=== PATIENT | female | born 1980 | race American Indian/Alaskan Native ===

== ENCOUNTER 2016-06-17 12:23 | Emergency (ER) | payer OTHER ==
[2016-06-17] MEDS ORDERED: ATIVAN ONE (12:36)
[2016-06-17] MEDS ORDERED: KEPPRA 1,000 MG/NS 0.75% 100ML 1,000 MG/100 ML BAG IV ONE ×2 (12:37→13:40)
--- NOTE | 2016-06-17 14:07 | Emergency Department Report ---
HPI - General Chief Complaint: Seizure Time Seen by Provider: 06/17/16 13:19 - HPI HPI: Chief complaint: Seizure HPI: Patient is a 35-year-old female who states she's had seizures for many years and has seen numerous neurologists. Patient states her EEG was normal. Patient lost her Medicaid and has not been able to see her doctor or fill her prescriptions. According to her boyfriend patient had 3-5 seizures today lasting various amounts of time. Patient does not have a post ictal phase and patient has shaking all over. There is no incontinence and no biting of her tongue. Patient has a history of migraine headaches and states she is having a migraine headache. Mode of arrival: EMS Source: Patient and patient's friend Began: This morning Duration: See above Context: See above Quality: Aching all over and migraine type headache Severity: 9 out of 10 Improved with: Nothing Worsened with: Not taking her medications Associated signs and symptoms: Patient denies fever, cough, cold, sore throat, nausea, vomiting, diarrhea, dysuria frequency or urgency. ED Past Medical Hx - Past Medical History Previous Medical History?: Yes Hx Seizures: Yes - Surgical History Past Surgical History?: No - Social History Smoking Status: Never Smoker Substance Use Type: None - Medications Home Medications: Home Medications Medication Instructions Recorded Confirmed Last Taken Type levETIRAcetam [Keppra TAB] 1,000 mg PO BID #60 tab 06/17/16 Unknown Rx levETIRAcetam [Keppra TAB] 1,500 mg PO BID 06/17/16 06/17/16 Unknown History ED Review of Systems ROS: Stated complaint: SEIZURE Other details as noted in HPI ROS Constitutional: No fever ENT: No uri symptoms Cardiovascular: No chest pain Respiratory: No sob or cough GI: No nausea vomiting or diarrhea : No dysuria frequency or urgency, Skin: No rash Neuro: No focal weakness or numbness Psych: No depression Sarabjit/lymph: No edema Physical Exam - Physical Exam Vital Signs: Vital Signs 06/17/16 12:45 Temperature 97.4 F L Pulse Rate 71 Respiratory 16 Rate Blood Pressure 112/60 O2 Sat by Pulse 99 Oximetry Physical Exam: GENERAL: The patient is well-developed well-nourished . HEENT: Normocephalic. Atraumatic. Extraocular motions are intact. Patient has moist mucous membranes. NECK: Supple. No meningitic signs are noted. There is no adenopathy noted. CHEST/LUNGS: Clear to auscultation. There is no respiratory distress noted. HEART/CARDIOVASCULAR: Regular. There is no tachycardia. There is no gallop rub or murmur. ABDOMEN: Abdomen is soft, nontender. Patient has normal bowel sounds. There is no abdominal distention. SKIN: There is no rash. There is no edema. There is no diaphoresis. NEURO: The patient is awake, alert, and oriented. The patient is cooperative. The patient has no focal neurologic deficits. The patient has normal speech. MUSCULOSKELETAL: There is no tenderness or deformity. There is no limitation range of motion. There is no evidence of acute injury. ED Course Vital Signs 06/17/16 12:45 Temperature 97.4 F L Pulse Rate 71 Respiratory 16 Rate Blood Pressure 112/60 O2 Sat by Pulse 99 Oximetry - Reevaluation(s) Reevaluation #1: 06/17/16 14:07 Patient given a gram of IV Keppra. ED Medical Decision Making - Lab Data Result diagrams: 06/17/16 14:02 06/17/16 14:02 Critical care attestation.: If time is entered above; I have spent that time in minutes in the direct care of this critically ill patient, excluding procedure time. ED Disposition Clinical Impression: Seizure Disposition: DISCHARGED TO HOME OR SELFCARE Is pt being admited?: No Does the pt Need Aspirin: No Condition: Stable Instructions: Non-epileptic Seizures (ED) Prescriptions: levETIRAcetam [Keppra TAB] 1,000 mg PO BID #60 tab Time of Disposition: 16:02
[2016-06-17 14:20] LABS: Urine Drugs of Abuse Note Disclamer
[2016-06-17 14:23] LABS: Basophils % (Auto) 1.1 % (0.0-1.8); Eosinophils % (Auto) 0.9 % (0.0-4.3); Hemoglobin 11.9 gm/dl (10.1-14.3); Mean Corpuscular HGB Conc 32 % (30-34); Mean Corpuscular Hemoglobin 30 pg (28-32); Mean Corpuscular Volume 92 fl (79-97); Platelet Count 201 K/mm3 (140-440); Red Blood Count 4.03 M/mm3 (3.65-5.03); Red Cell Distribution Width 14.5 % (13.2-15.2); White Blood Count 4.3 K/mm3 (4.5-11.0)
[2016-06-17 14:39] LABS: Bacteria,Urine 1+ /HPF (Negative); Bilirubin,Urine NEG (Negative); Blood,Urine NEG (Negative); Ketones,Urine NEG (Negative); Leukocyte Esterase,Urine NEG (Negative); Nitrite,Urine NEG (Negative); Protein,Urine <15 mg/dL mg/dL (Negative); Urobilinogen,Urine < 2.0 mg/dL (<2.0)
[2016-06-17 14:41] LABS: Anion Gap 14 mmol/L; BUN/Creatinine Ratio 14.28; Blood Urea Nitrogen 10 mg/dL (7-17); Calcium 8.8 mg/dL (8.4-10.2); Carbon Dioxide 25 mmol/L (22-30); Chloride 103.4 mmol/L (98-107); Glucose 94 mg/dL (65-100); Potassium 4.2 mmol/L (3.6-5.0); Sodium 138 mmol/L (137-145)
[2016-06-17 17:15] VITALS: BP 108/70
== END 2016-06-17 16:15 | disposition home or self-care (01) ==
LOC: ED 12:23
DX: R56.9 Unspecified convulsions (principal); G43.909 Migraine, unspecified, not intractable, without status migrainosus
CPT/HCPCS: 36415; 80048; 80307; 81001; 81025; 85025; 96365; 99283; J1953; J2060